=== PATIENT | female | born 1965 | race Native Hawaiian/Other Pacific Islander ===

== ENCOUNTER 2018-05-21 10:38 | Outpatient (CLI) | payer MEDICAID | END 2018-05-21 10:39 | disposition home or self-care (01) | LOC: C.MAMMO 10:39 | DX: Z12.31 Encounter for screening mammogram for malignant neoplasm of breast (principal) ==

== ENCOUNTER 2018-05-21 10:46 | Outpatient (CLI) | payer MEDICAID | END 2018-05-21 10:47 | disposition home or self-care (01) | LOC: C.DEXAIC 10:46 ==